=== PATIENT | male | born 1940 | race Caucasian/White ===

== ENCOUNTER 2018-03-26 00:18 | Emergency (ER) | payer MEDICARE, BC ==
[2018-03-26] MEDS: HYDROmorphone 2 MG/ML Syringe IVPUSH ONE ×2 (00:46→01:00)
[2018-03-26] MEDS ORDERED: HYDROmorphone 2 MG/ML Syringe IVPUSH ONE (02:56)
[2018-03-26] MEDS ORDERED: Ondansetron 4 MG/2 ML SDV IVPUSH ONE (03:00)
[2018-03-26] MEDS ORDERED: Sodium Chloride 0.9% 1,000 ML IV SCH (03:00)
--- NOTE | 2018-03-26 08:02 | ER ---
Date of Service: 03/26/2018 HISTORY OF PRESENT ILLNESS: A 77-year-old male who comes in with his by private car with complaints of abdominal pain/flank pain involving the left side of the abdomen. It does radiate down into the inguinal area. The patient states it came on last evening, it has been severe and constant pain. He denies any problems with nausea, vomiting , or diarrhea. He has not had any rectal bleeding. The patient has not noticed any blood in his urine. He has not had any recent falls or injuries. He states he has not been sick recently. He did go fishing yesterday and it was extremely rough on the [place] because of wind. The patient does have history of a kidney stone x1. He also has history of stage 3 kidney disease, telling me this stems from a [place] with a tick-borne illness that has given him a lot of problems over the last few years. He is currently taking Kineret for that. He also is on medication for high blood pressure and gout. REVIEW OF SYSTEMS: Positive for left-sided abdominal/flank pain. OBJECTIVE: GENERAL APPEARANCE: The patient is awake, he is uncomfortable. VITAL SIGNS: Reviewed. He is afebrile. Blood pressure 143/83, pulse 65, respirations 16, O2 saturations 100%. Physical exam, oral mucous membranes are slightly dry. Tonsils not enlarged or injected. Pharynx not inflamed. NECK: Supple. LUNGS: Clear. CARDIAC: Heart sounds distinct. S1, S2 present. No murmurs noted. ABDOMEN: Soft. There was no tenderness with palpation involving the left lower quadrant, even when pushing over the area that the patient states is painful. With palpation of the posterior aspect of the low back left side, there is minimal discomfort. Bowel sounds are present, but fairly quiet tonight. INITIAL TREATMENT PLAN: An IV was started. The patient was given Dilaudid 1 mg. This did bring his pain down from 9 or 10 to a 5/10. A second mg of Dilaudid brought the pain down to 2 or 3. LABORATORY DATA: Labs include a CBC showing a normal white count, hemoglobin is 11.0. Comprehensive metabolic panel shows a potassium of 4.8, sodium 144. Kidney function is abnormal. BUN is 59, creatinine 3.84, GFR is 15. Lactic acid is normal at 0.94. Liver enzymes are good. UA is pending. CT of the abdomen and pelvis reveals a 2 mm obstructing stone in the left distal ureter and an additional 2 mm stone in the left proximal ureter, not definitely causing obstruction. He also has multiple bilateral nonobstructing renal stones. Findings also include multiple gallstones with gallbladder dilation. No CT evidence of acute cholecystitis and lastly there is a 2.4 soft tissue mass in the right abdomen, thought to be of no acute clinical significance. The patient has no known history of a mass being discussed in the right abdomen. DIAGNOSES: 1. Obstructing renal stone, left ureter. 2. Severe kidney disease with History of stage 3 kidney disease. TREATMENT PLAN: I did discuss this patient's case with Dr. Vee, hospitalist at [facility], and they accepted the patient. He will be transferred by ambulance for further evaluation and treatment. The patient will be given an additional 2 mg of Dilaudid before leaving our facility, since his pain is starting to creep back up, and normal saline will be started at 100 mL/h. CRS/MODL /[id number] FARAZ
--- NOTE | 2018-03-26 10:01 | CT ---
UNENHANCED ABDOMEN AND PELVIC CT, 03/26/18 Multislice acquisition through the abdomen and pelvis without IV or oral contrast was performed. No priors. The heart size is within normal limits. There are coronary artery calcifications. No significant pericardial effusion. There are mild atelectatic changes in both lung bases. The lung bases are otherwise clear. There is a moderate-sized hiatal hernia. There are surgical changes involving the stomach and GE junction. The unenhanced liver appears normal. No focal hepatic lesions. There are multiple calcified gallstones within the dependent gallbladder. The gallbladder is mildly distended. No pericholecystic fluid. There is a calcification within the spleen consistent with prior granulomatous disease. There is a 9 mm nodule anterior to the spleen consistent with an accessory spleen. The pancreas appears normal. The right and left adrenals appear normal. There is atrophy of both kidneys. There are multiple low-density lesions within the left kidney consistent with renal cysts. There is a 3 mm left ureteral calculus located in the proximal left ureter at the L2-3 level. There is another 3 mm left ureteral calculus located in the distal left ureter just proximal to the ureterovesical junction. There is hydronephrosis and hydroureter proximal to it consistent with obstruction. The kidneys and collecting systems are otherwise unremarkable. The bladder is partially fluid filled. It appears normal. The prostate is enlarged. The appendix is not dilated. No evidence of appendicitis. There is mild diverticulosis of the descending and sigmoid colon. No evidence of diverticulitis. No free air. No free fluid. No dilated loops of bowel. No adenopathy. No aortic aneurysm. There is a small umbilical hernia containing fat. IMPRESSION: 1) Multiple left ureteral calculi with hydronephrosis and hydroureter consistent with obstruction. 2) Cholelithiasis. 3) Multiple other findings as discussed above. [id number] [facility]
== END 2018-03-26 03:20 ==
LOC: LB.ED 00:18
DX: N13.2 Hydronephrosis with renal and ureteral calculous obstruction (principal); I12.9 Hypertensive chronic kidney disease with stage 1 through stage 4 chronic kidney disease, or unspecified chronic kidney disease; N18.3 Chronic kidney disease, stage 3 (moderate); Z79.899 Other long term (current) drug therapy
CPT/HCPCS: 36415; 74176; 80053; 83605; 85025; 96374; 96375; 96376; 99284; 99285-25; A0425; A0429; J1170; J2405; J7030